=== PATIENT | male | born 1990 ===

== ENCOUNTER 2022-12-29 19:18 | Emergency (ER) | payer SELFPAY ==
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
[2022-12-29 21:09] VITALS: BP 134/74; BP 135/75; PULSE 86; PULSE 90; RESP 18; TEMP 36.8; O2SAT 98; BMI 30.4
== END 2022-12-30 00:15 | disposition left against medical advice (07) ==
LOC: HO.ED 12-30 00:13
PROVIDERS: Emergency Provider Emergency Medicine
DX: Z04.1 Encounter for examination and observation following transport accident (principal); F10.90 Alcohol use, unspecified, uncomplicated; Y90.9 Presence of alcohol in blood, level not specified
CPT/HCPCS: 70450; 70486; 71250; 72125; 74176; 99281; 99284